=== PATIENT | female | born 1940 | race Caucasian/White ===

== ENCOUNTER 2017-05-08 21:17 | Inpatient (IN) | payer MEDICARE, MEDICAID ==
[~2017-05-08] VITALS: Ht 162.6 cm; Wt 68.0 kg
--- NOTE | 2017-05-08 21:30 | NUR ---
DR. SALAZAR AT BEDSIDE FOR MSE.
[2017-05-08] MEDS ORDERED: CHOL10002 PO (21:40)
[2017-05-08] MEDS ORDERED: BLOO-140 IN (21:40)
[2017-05-08] MEDS ORDERED: DOCU100C36 PO (21:40)
[2017-05-08] MEDS ORDERED: GLIP5TAB13 PO (21:40)
[2017-05-08] MEDS ORDERED: ACET325T53 PO (21:40)
[2017-05-08] MEDS ORDERED: INSU3INS6 SQ (21:40)
[2017-05-08] MEDS ORDERED: MAGN400O6 PO (21:40)
[2017-05-08] MEDS ORDERED: DIPH25CA83 PO (21:40)
[2017-05-08] MEDS ORDERED: QUET25TA PO (21:40)
[2017-05-08 22:26] LABS: BASOPHILS % (AUTO) 0.3 % (0.0-2.0); CARBON DIOXIDE 30 mmol/L (21-32); CHLORIDE 101 mmol/L (98-107); CREATININE 0.7 mg/dL (0.6-1.3); EOSINOPHILS % (AUTO) 0.1 % (0.0-7.0); GLUCOSE 204 mg/dL (74-106); HEMATOCRIT 40.4 % (31.2-41.9); HEMOGLOBIN 13.5 g/dL (10.9-14.3); LYMPHOCYTES # (AUTO) 0.6 K/uL (20.0-40.0); LYMPHOCYTES % (AUTO) 5.6 % (20.5-51.5); MEAN CORPUSCULAR HEMOGLOBIN 30.4 uug (24.7-32.8); MEAN CORPUSCULAR HGB CONC 34 g/dL (32.3-35.6); MEAN CORPUSCULAR VOLUME 90.8 fL (75.5-95.3); MONOCYTES # (AUTO) 0.5 K/uL (2.0-10.0); MONOCYTES % (AUTO) 4.4 % (0.0-11.0); NEUTROPHILS # (AUTO) 9.5 K/uL (1.8-8.9); NEUTROPHILS % (AUTO) 89.6 % (38.5-71.5); PLATELET COUNT (AUTO) 159 K/uL (179-408); POTASSIUM 3.8 mmol/L (3.5-5.1); RED BLOOD CELL COUNT(AUTO) 4.45 MIL/uL (3.63-4.92); UREA NITROGEN, BLOOD 15 mg/dL (7-18); WHITE BLOOD COUNT (AUTO) 10.6 K/uL (3.8-11.8)
[2017-05-08 22:31] LABS: ALANINE AMINOTRANSFERASE 37 U/L (14-59); ALKALINE PHOSPHATASE 76 U/L (50-136); ASPARTATE AMINOTRANSFERASE 19 U/L (15-37); BILIRUBIN,DIRECT 0.1 mg/dL (0.0-0.2); BILIRUBIN,TOTAL 0.5 mg/dL (0.2-1.0); LIPASE 60 U/L (73-393); TOTAL PROTEIN, SERUM 7.3 g/dL (6.4-8.2)
[2017-05-08] MEDS ORDERED: LEVOFLOXACIN 500 MG/D5W 100 ML ONE (22:57)
[2017-05-08] MEDS ORDERED: LEVOFLOXACIN 500 MG/D5W 100ML PIGGYBACK IV ONE (23:00)
[2017-05-08 23:20] LABS: *BILIRUBIN,URIN NEGATIVE (NEGATIVE); *BLOOD, URINE Trace-intact (NEGATIVE); *CLARITY,URINE CLEAR (CLEAR); *COLOR,URINE YELLOW (YELLOW); *KETONES,URINE 3+ (NEGATIVE); *PROTEIN,URINE 1+ (NEGATIVE); *UROBILINOGEN,URINE 0.2 E.U./dl (NORMAL); LEUKOCYTE ESTERASE ,URINE NEGATIVE (NEGATIVE); NITRITE, URINE NEGATIVE (NEGATIVE); UGLUCOSE NEGATIVE (NEGATIVE)
[2017-05-08 23:28] LABS: BACTERIA,URINE NONE SEEN /HPF (NONE SEEN); MUCUS,URINE FEW /LPF (0-FEW); SQUAMOUS EPITHELIAL CELL,UR FEW /HPF (NONE SEEN); WBC,URINE 0-3 /HPF (0-3)
[2017-05-08] MEDS ORDERED: ONDANSETRON 4 MG/2 ML VIAL ONE (23:28)
[2017-05-08] MEDS: METRONIDAZOLE 500 MG/NS 100 ML PIGGYBACK IV ONE (23:30)
[2017-05-08] MEDS ORDERED: ONDANSETRON IV *ER 4 MG/2 ML VIAL IV ONE (23:30)
[2017-05-09] MEDS ORDERED: METRONIDAZOLE 500 MG/NS 100ML 100 ML IV ONE (00:06)
[2017-05-09] MEDS: METRONIDAZOLE 500 MG/NS 100 ML PIGGYBACK IV ONE (00:09)
[2017-05-09] MEDS ORDERED: DEXTROSE 50% 50 ML DISP.SYRIN IV PRN (01:00)
[2017-05-09] MEDS ORDERED: MORPHINE SULFATE 4 MG/1 ML DISP.SYRIN IV PRN (01:00)
[2017-05-09] MEDS ORDERED: ENALAPRILAT DIHYDRATE INJ 2.5 MG in IV NORMAL SALINE 50 ML IV PRN (01:00)
--- NOTE | 2017-05-09 01:10 | NUR ---
PATIENT PULLED OUT IV, CATHETER INTACT. NEW 20 GAUGE IV INSERTED IN RIGHT AC.
[2017-05-09] MEDS ORDERED: ONDANSETRON IV *ER 4 MG/2 ML VIAL IV ONE (01:15)
[2017-05-09 01:30] VITALS: BP 134/68
--- NOTE | 2017-05-09 01:30 | NUR ---
ADMITTED PATIENT IN MED SURG UNIT UNDER THE CARE OF DR. MOORE, BELONGING LIST DONE.
--- NOTE | 2017-05-09 01:32 | NUR ---
Pt. admitted to M/S , under care of Dr. MOORE Belongs List completed
[2017-05-09] MEDS ORDERED: PIPERACILLIN/TAZOBACTAM/D5W 100 ML IV ONE (02:50)
[2017-05-09] MEDS: IV D5 1/2 NS 1000 ML 1,000 ML IV PRN ×2 (02:52→23:03)
[2017-05-09] MEDS: PIPERACILLIN/TAZOBACTAM/D5W 50 ML IV SCH ×4 (03:57→18:09)
[2017-05-09 05:07] VITALS: BP 139/58
[2017-05-09] MEDS: BLOOD SUGAR DIAGNOSTIC 1 EACH STRIP VI SCH ×3 (06:09→18:48)
[2017-05-09] MEDS: PANTOPRAZOLE SODIUM 40 MG TABLET.DR PO SCH (06:16)
--- NOTE | 2017-05-09 06:26 | NUR ---
PATIENT SLEPT ON AND OFF, DENIES PAIN AT THIS TIME, WITH X 1 EPISODE OF VOMITTING WITH CLEAR FLUIDS, APPROX 150CC, REMAINS NPO EXCEPT FOR PO MEDS. CONTINENT OF BLADDER BUT DIAPER WAS PLACE TO PREVENT ACCIDENT. ASSISTED WITH TOILETING, KEPT COMFORTABLE. PATIENT IV ANTIBIOTICS AT 0600 NOT GIVEN DUE TOO CLOSE FROM PREVIOUS ADMINISTRATION, ENDORSED TO NEXT SHIFT
--- NOTE | 2017-05-09 07:10 | NUR ---
Received report from manager chinese, client is in bed sleeping on her right lateral side with the bed in a flat position. No s/s of pain, SOB, distress or discomfort. IV hydration running through the right hand IV site with no complications. Bed is lowest position for safety and call light within reach for assistance
[2017-05-09 07:14] LABS: THYROID STIMULATING HORMONE 0.826 mIU/mL (0.358-3.740)
[2017-05-09 07:27] LABS: ALANINE AMINOTRANSFERASE 32 U/L (14-59); ALKALINE PHOSPHATASE 67 U/L (50-136); ASPARTATE AMINOTRANSFERASE 18 U/L (15-37); BILIRUBIN,TOTAL 0.5 mg/dL (0.2-1.0); CARBON DIOXIDE 31 mmol/L (21-32); CHLORIDE 101 mmol/L (98-107); CREATININE 0.7 mg/dL (0.6-1.3); GLUCOSE 158 mg/dL (74-106); MAGNESIUM 2.1 mg/dL (1.8-2.4); PHOSPHOROUS 2.6 mg/dL (2.5-4.9); POTASSIUM 3.6 mmol/L (3.5-5.1); TOTAL PROTEIN, SERUM 6.7 g/dL (6.4-8.2); UREA NITROGEN, BLOOD 14 mg/dL (7-18)
[2017-05-09] MEDS ORDERED: diphenhydrAMINE 25 MG CAP PO PRN (08:00)
--- NOTE | 2017-05-09 08:00 | NUR ---
Client Accu check in the am as endorsed by the placement specialist was 142, client is NPO. Held Insulin in order not to drop her blood sugar
[2017-05-09 08:25] LABS: BASOPHILS % (AUTO) 0.4 % (0.0-2.0); EOSINOPHILS % (AUTO) 0.1 % (0.0-7.0); HEMATOCRIT 37.8 % (31.2-41.9); HEMOGLOBIN 12.7 g/dL (10.9-14.3); LYMPHOCYTES # (AUTO) 0.8 K/uL (20.0-40.0); LYMPHOCYTES % (AUTO) 8.2 % (20.5-51.5); MEAN CORPUSCULAR HEMOGLOBIN 30.7 uug (24.7-32.8); MEAN CORPUSCULAR HGB CONC 34 g/dL (32.3-35.6); MEAN CORPUSCULAR VOLUME 91.2 fL (75.5-95.3); MONOCYTES # (AUTO) 0.6 K/uL (2.0-10.0); MONOCYTES % (AUTO) 6.6 % (0.0-11.0); NEUTROPHILS # (AUTO) 7.8 K/uL (1.8-8.9); NEUTROPHILS % (AUTO) 84.7 % (38.5-71.5); PLATELET COUNT (AUTO) 159 K/uL (179-408); RED BLOOD CELL COUNT(AUTO) 4.15 MIL/uL (3.63-4.92); WHITE BLOOD COUNT (AUTO) 9.2 K/uL (3.8-11.8)
[2017-05-09 09:25] LABS: CHOLESTEROL 164 mg/dL (<200); HDL CHOLESTEROL 60 mg/dL (40-60); TRIGLYCERIDES 47 MG/DL (30-150)
[2017-05-09] MEDS: CHOLECALCIFEROL 1,000 UNIT TABLET PO SCH (09:31)
--- NOTE | 2017-05-09 09:35 | NUR ---
Zosyn IV started at this time due to previous IV Zosyn scheduled at midnight was given around 4am. Pharmacy aware and stated to try to catch for the day and suggested that the 6am dose be given around 9am and the noon dose around 1pm and have the 1800 dose be given on time.
[2017-05-09 11:38] VITALS: BP 137/52
[2017-05-09] MEDS: ONDANSETRON 4 MG/2 ML VIAL IV PRN ×2 (13:18→20:49)
--- NOTE | 2017-05-09 13:18 | NUR ---
Noted client with nausea and vomiting episodes times 2 with about 25cc of emesis Addendum: 05/09/17 at 1319 by RUDDY STAFFORD RN John chaparro
--- NOTE | 2017-05-09 14:00 | NUR ---
Asked client is she had voided for the day, client stated she had not. I asked the client id she would like assistance to the restroom in order for her to voided, she refused. Concern about her not voiding, I asked her if I could do a bladder scan, but client refuse stating to leave her alone. Client's wishes were respected.
--- NOTE | 2017-05-09 14:20 | NUR ---
Client stated she went to the restroom and voided outside the toilet, noted urine on the floor and called maintenance to clean up the spill. Cleint back in bed and assisted her with the help of the PROFESSOR OF COMMUNICATION ARTS to pull her up and now comfortable in bed.
[2017-05-09 15:40] VITALS: BP 136/55
[2017-05-09] MEDS ORDERED: ONDANSETRON 4 MG/2 ML VIAL IV STA (16:13)
--- NOTE | 2017-05-09 16:15 | NUR ---
CONSULT WITH NEW ORDERS FOR ZOFRAN 4MG IV STAT FOR NAUSEA
[2017-05-09] MEDS: INSULIN REGULAR, HUMAN 300 UNIT/3 ML VIAL SQ PRN (18:50)
--- NOTE | 2017-05-09 19:15 | NUR ---
End of shift notes: Client is in bed sleeping with no apparent sign and symptoms of SOB, pain, distress or discomfort. Noted client to rest and sleep throughout the day, around 1420 hrs client got up without using the call light and use the restroom, noted that she voided.Bed at lowest position for safety and call light within reach for assistance. IV Zosyn given and Zofran was most of the planned care for today. Client was noted to be compliant after explaining all medication and the nursing care being provided for her.
--- NOTE | 2017-05-09 19:25 | NUR ---
RECEIVED PT LYING IN BED. ALERT AND ORIENTED X2. NOT IN ACUTE DISTRESS. SAFETY MEASURE INITIATED AND CALL IBRAHIM WITHIN REACHED.
[2017-05-09 20:00] VITALS: BP 141/59
[2017-05-09] MEDS: QUETIAPINE FUMARATE 25 MG TABLET PO SCH (20:05)
[2017-05-10] MEDS: PIPERACILLIN/TAZOBACTAM/D5W 50 ML IV SCH ×4 (00:02→18:24)
[2017-05-10 04:33] VITALS: BP 126/54
--- NOTE | 2017-05-10 04:59 | NUR ---
PT ASLEEP. NOT IN ACUTE DISTRESS. IV SITE ON RIGHT FA INTACT AND PATENT. IV FLUIDS INFUSING. REFUSED ACCU CHECK AT 0000. ZOFRAN GIVEN FOR NAUSEA AND EFFECTIVE. ASSISTED TO TOILET AD GUSTAVO. DENIES ANY PAIN OR SOB. BED ON LOW POSITION WITH BED ALARM ON. SAFETY MEASURE MAINTAINED. Addendum: 05/10/17 at 0504 by SABA CURRY RN IV SITE ON RIGHT HAND.
[2017-05-10] MEDS: BLOOD SUGAR DIAGNOSTIC 1 EACH STRIP VI SCH ×4 (05:34→18:38)
[2017-05-10] MEDS: INSULIN REGULAR, HUMAN 300 UNIT/3 ML VIAL SQ PRN ×3 (05:38→18:43)
[2017-05-10] MEDS: PANTOPRAZOLE SODIUM 40 MG TABLET.DR PO SCH (06:05)
[2017-05-10 07:53] LABS: BASOPHILS % (AUTO) 0.4 % (0.0-2.0); EOSINOPHILS # (AUTO) 0.1 K/uL (0.0-0.7); EOSINOPHILS % (AUTO) 1.8 % (0.0-7.0); HEMATOCRIT 37.7 % (31.2-41.9); HEMOGLOBIN 12.5 g/dL (10.9-14.3); LYMPHOCYTES # (AUTO) 1.1 K/uL (20.0-40.0); LYMPHOCYTES % (AUTO) 17.3 % (20.5-51.5); MEAN CORPUSCULAR HEMOGLOBIN 30.1 uug (24.7-32.8); MEAN CORPUSCULAR HGB CONC 33 g/dL (32.3-35.6); MEAN CORPUSCULAR VOLUME 90.5 fL (75.5-95.3); MONOCYTES # (AUTO) 0.5 K/uL (2.0-10.0); MONOCYTES % (AUTO) 8.6 % (0.0-11.0); NEUTROPHILS # (AUTO) 4.5 K/uL (1.8-8.9); NEUTROPHILS % (AUTO) 71.9 % (38.5-71.5); PLATELET COUNT (AUTO) 154 K/uL (179-408); RED BLOOD CELL COUNT(AUTO) 4.16 MIL/uL (3.63-4.92)
[2017-05-10 07:59] LABS: CARBON DIOXIDE 30 mmol/L (21-32); CREATININE 0.8 mg/dL (0.6-1.3); GLUCOSE 164 mg/dL (74-106); MAGNESIUM 2.2 mg/dL (1.8-2.4); PHOSPHOROUS 2.2 mg/dL (2.5-4.9); UREA NITROGEN, BLOOD 11 mg/dL (7-18)
[2017-05-10 08:06] LABS: WHITE BLOOD COUNT (AUTO) 6.3 K/uL (3.8-11.8)
[2017-05-10 08:11] LABS: CHLORIDE 104 mmol/L (98-107)
[2017-05-10 08:47] LABS: POTASSIUM 2.6 mmol/L (3.5-5.1)
[2017-05-10] MEDS: CHOLECALCIFEROL 1,000 UNIT TABLET PO SCH (09:52)
[2017-05-10 11:07] VITALS: BP 136/61
[2017-05-10] MEDS: ACETAMINOPHEN 325 MG TABLET PO PRN (11:47)
[2017-05-10 15:09] VITALS: BP 130/67
[2017-05-10] MEDS ORDERED: POTASSIUM CHLORIDE 20 MEQ TAB.PRT.SR PO ONE (15:30)
[2017-05-10] MEDS ORDERED: NEUTRA PHOS PACKET PO ONE (16:45)
[2017-05-10] MEDS: IV D5 1/2 NS 1000 ML 1,000 ML IV PRN (18:54)
--- NOTE | 2017-05-10 19:30 | NUR ---
Received patient laying comfortably in bed. No acute distress noted. A&O x 2, confused. Patient is able to make needs known. Patient likes to walk to the bathroom. Reenforced safety, instructed patient to use call light when in need of assistance. Patient understood. Bed alarm on. Room is kept clutter free. Bed is in low and locked position. IV Fluids running. on the Right AC. Safety initiated, call light within reach. Will continue to monitor.
[2017-05-10 20:00] VITALS: BP 142/64
[2017-05-10] MEDS: QUETIAPINE FUMARATE 25 MG TABLET PO SCH (20:01)
[2017-05-11] MEDS: PIPERACILLIN/TAZOBACTAM/D5W 50 ML IV SCH ×4 (00:10→17:01)
[2017-05-11] MEDS: BLOOD SUGAR DIAGNOSTIC 1 EACH STRIP VI SCH ×6 (00:12→20:46)
[2017-05-11] MEDS: INSULIN REGULAR, HUMAN 300 UNIT/3 ML VIAL SQ PRN ×4 (00:13→20:51)
[2017-05-11 04:35] VITALS: BP 148/59
--- NOTE | 2017-05-11 05:47 | NUR ---
Patient slept intermittently t/o shift. No acute distress noted. Patient is A&O x 2 but very forgetful and has episodes of confusion and aggressiveness. However, I was able to re-direct patient. No c/o pain. Vital Signs stable. No temperature. IVF infusing on the Right AC. Bed alarm on. Room is kept clutter free. Bed is in low and locked positioned. Safety and comfort measures maintained t/o shift. BM x 1. All meds given as ordered. All needs met.
[2017-05-11] MEDS: PANTOPRAZOLE SODIUM 40 MG TABLET.DR PO SCH (06:13)
[2017-05-11] MEDS ORDERED: DEXTROSE 50% 50 ML DISP.SYRIN IV PRN (07:15)
[2017-05-11 07:32] LABS: CARBON DIOXIDE 33 mmol/L (21-32); CHLORIDE 107 mmol/L (98-107); CREATININE 0.7 mg/dL (0.6-1.3); GLUCOSE 132 mg/dL (74-106); MAGNESIUM 2.1 mg/dL (1.8-2.4); PHOSPHOROUS 3.2 mg/dL (2.5-4.9); UREA NITROGEN, BLOOD 13 mg/dL (7-18)
--- NOTE | 2017-05-11 07:46 | NUR ---
RECEIVED PT LYING IN BED. ALERT AND ORIENTED X2. NOT IN ACUTE DISTRESS. SAFETY MEASURE INITIATED AND CALL IBRAHIM WITHIN REACHED.
[2017-05-11 07:54] LABS: BASOPHILS % (AUTO) 0.6 % (0.0-2.0); EOSINOPHILS # (AUTO) 0.5 K/uL (0.0-0.7); EOSINOPHILS % (AUTO) 10.2 % (0.0-7.0); HEMATOCRIT 37.4 % (31.2-41.9); HEMOGLOBIN 12.6 g/dL (10.9-14.3); LYMPHOCYTES # (AUTO) 1.2 K/uL (20.0-40.0); LYMPHOCYTES % (AUTO) 24.2 % (20.5-51.5); MEAN CORPUSCULAR HEMOGLOBIN 30.5 uug (24.7-32.8); MEAN CORPUSCULAR HGB CONC 34 g/dL (32.3-35.6); MEAN CORPUSCULAR VOLUME 90.5 fL (75.5-95.3); MONOCYTES # (AUTO) 0.5 K/uL (2.0-10.0); MONOCYTES % (AUTO) 10.9 % (0.0-11.0); NEUTROPHILS # (AUTO) 2.7 K/uL (1.8-8.9); NEUTROPHILS % (AUTO) 54.1 % (38.5-71.5); PLATELET COUNT (AUTO) 172 K/uL (179-408); RED BLOOD CELL COUNT(AUTO) 4.14 MIL/uL (3.63-4.92); WHITE BLOOD COUNT (AUTO) 4.9 K/uL (3.8-11.8)
[2017-05-11] MEDS: CHOLECALCIFEROL 1,000 UNIT TABLET PO SCH (08:05)
[2017-05-11 11:07] VITALS: BP 148/63
[2017-05-11] MEDS ORDERED: POTASSIUM CHLORIDE 20 MEQ TAB.PRT.SR PO ONE (11:15)
[2017-05-11 12:55] LABS: EOSINOPHILS % (MANUAL) 14 % (0-8); LYMPHOCYTES % (MANUAL) 23 % (20-40); METAMYELOCYTES % 1 % (0-1); MONOCYTES % (MANUAL) 10 % (2-10); NEUTROPHILS % (MANUAL) 50 % (42-75)
[2017-05-11 12:56] LABS: REACTIVE LYMPHOCYTES 2 % (0-0)
[2017-05-11 15:49] VITALS: BP 155/68
[2017-05-11 16:12] VITALS: BP 140/60
--- NOTE | 2017-05-11 17:23 | NUR ---
Patient slept intermittently t/o shift. No acute distress noted. No c/o pain. Vital Signs STABLE.. Bed alarm on. Room is kept clutter free. Bed is in low and locked positioned.. All needs met.
--- NOTE | 2017-05-11 19:15 | NUR ---
RECEIVED PT AWAKE, ALERT, ORIENTEDX3. PT SHOWS NO SIGNS OF DISTRESS. PT IV INTACT AND PATENT. CALL LIGHT WITHIN REACH. WILL CONTINUE TO MONITOR.
[2017-05-11 20:23] VITALS: BP 143/59
[2017-05-11] MEDS: QUETIAPINE FUMARATE 25 MG TABLET PO SCH (20:43)
[2017-05-12] MEDS: PIPERACILLIN/TAZOBACTAM/D5W 50 ML IV SCH ×5 (00:09→23:16)
[2017-05-12] MEDS: IV D5 1/2 NS 1000 ML 1,000 ML IV PRN ×2 (00:15→17:15)
[2017-05-12] MEDS: PANTOPRAZOLE SODIUM 40 MG TABLET.DR PO SCH (06:17)
--- NOTE | 2017-05-12 06:21 | NUR ---
PT SLEPT THROUGHOUT THE SHIFT. PT SHOWS NO SIGNS OF DISTRESS. PT BLOOD SUGAR WAS 209 PER SLIDING SCALE. PT VITAL SIGNS WITHIN NORMAL LIMIT. PRESCRIBED MEDICATION GIVEN AND TOLERATED. IV INTACT AND PATENT. CALL LIGHT WITHIN REACH. SAFETY AND COMFORT PROVIDED.
[2017-05-12] MEDS: glipiZIDE 5 MG TABLET PO SCH ×2 (06:31→17:12)
[2017-05-12] MEDS: BLOOD SUGAR DIAGNOSTIC 1 EACH STRIP VI SCH ×4 (06:32→20:46)
[2017-05-12 06:55] VITALS: BP 149/56
[2017-05-12] MEDS: CHOLECALCIFEROL 1,000 UNIT TABLET PO SCH (08:25)
[2017-05-12] MEDS: INSULIN REGULAR, HUMAN 300 UNIT/3 ML VIAL SQ PRN ×4 (08:25→20:51)
[2017-05-12 13:00] VITALS: BP 149/65
[2017-05-12] MEDS ORDERED: INSU100V28 SQ (15:36)
[2017-05-12] MEDS ORDERED: METR500T PO (15:36)
[2017-05-12] MEDS ORDERED: DEXT50DI8 IV (15:36)
[2017-05-12] MEDS ORDERED: LEVO500T2 PO (15:36)
[2017-05-12] MEDS ORDERED: PANT40TA2 PO (15:36)
[2017-05-12] MEDS ORDERED: Blood Sugar Diagnostic VI (15:36)
[2017-05-12] MEDS ORDERED: OMEG1CAP PO (15:37)
[2017-05-12 16:18] VITALS: BP 176/111
--- NOTE | 2017-05-12 16:40 | NUR ---
PER THE COIN MACHINE SERVICE REPAIRER [facility] WILL BE UNABLE TO TAKE PATIENT UNTIL TOMORROW AND STATED THAT DR MOORE IS AWARE AND THAT THE PATIENTS NEPHEW AWARE OF PATIENT TO BE DISCHARGED TOMORROW.
--- NOTE | 2017-05-12 16:54 | NUR ---
BLOOD PRESSURE IS 198/80 HR 76 NO SYMPTOMS NOTED PATIENT MADE COMFORTABLE AND DR MOORE NOTIFIED WITH NEW ORDERS AND NOTED.
--- NOTE | 2017-05-12 19:20 | NUR ---
Received pt awake, alert orientedx3. Pt shows no signs of distress. pt iv intact and patent. call light within reach. will continue to monitor the pt condition.
[2017-05-12 20:12] VITALS: BP 173/62
[2017-05-12] MEDS: QUETIAPINE FUMARATE 25 MG TABLET PO SCH (20:41)
[2017-05-12] MEDS: CLONIDINE HCL 0.1 MG TABLET PO PRN (20:41)
[2017-05-12 21:57] VITALS: BP 107/92
[2017-05-13 04:32] VITALS: BP 141/57
[2017-05-13] MEDS: PIPERACILLIN/TAZOBACTAM/D5W 50 ML IV SCH ×2 (05:30→11:53)
[2017-05-13] MEDS: PANTOPRAZOLE SODIUM 40 MG TABLET.DR PO SCH ×3 (06:27→06:37)
[2017-05-13] MEDS: BLOOD SUGAR DIAGNOSTIC 1 EACH STRIP VI SCH ×2 (06:30→11:53)
[2017-05-13] MEDS: glipiZIDE 5 MG TABLET PO SCH ×2 (06:31→06:34)
--- NOTE | 2017-05-13 06:38 | NUR ---
pPt refuse to take the medication Protonix and Glipizide. She's anxious . pt iv intact and patent. safety and comfort provided. pt afebrile.will endorse to dayshift nurse.
[2017-05-13] MEDS: INSULIN REGULAR, HUMAN 300 UNIT/3 ML VIAL SQ PRN ×2 (08:25→12:19)
[2017-05-13] MEDS: ACETAMINOPHEN 325 MG TABLET PO PRN (08:25)
[2017-05-13] MEDS: CHOLECALCIFEROL 1,000 UNIT TABLET PO SCH (08:25)
--- NOTE | 2017-05-13 10:13 | NUR ---
CALLED THE [facility] AND REPORT GIVEN TO BHARGAV GILES FOR CONTINUING CARE WILL CALL THE AMBULANCE.
[2017-05-13] MEDS: CLONIDINE HCL 0.1 MG TABLET PO PRN (10:40)
--- NOTE | 2017-05-13 10:40 | NUR ---
BLOOD PRESSURE AT THIS TIME IS 157/55 MEDICATED WITH CLONIDINE ORDERED AND WILL OBSERVE.
[2017-05-13 11:40] VITALS: BP 157/55
--- NOTE | 2017-05-13 13:26 | NUR ---
PATIENT DISCHARGED PICKED UP BY THE AMBULANCE IN SATISFACTORY CONDITION WITH INSTRUCTIONS TO CLARIFY WITH HER SNF DOCTOR REGARDING THE ORDERS ON THE ANTIBIOTICS BECAUSE DR MOORE ORDERED LEVAQUIN AND FLAGYL BUT DR TURNER ORDERED FLAGYL AND CIPRO THE AMBULANCE TECHS WILL INFORM THE RECEIVING NURSE REGARDING THIS DIFFERENCE.PATIENT DISCHARGED WITH ALL HER PERSOMAL BELONGINGS.
== END 2017-05-13 13:20 | DRG 392 ==
LOC: ER 21:18 → MED 05-09 01:15
PROVIDERS: ADMIT Internal Medicine; ATTEND Internal Medicine
DX: K57.32 Diverticulitis of large intestine without perforation or abscess without bleeding (principal); D68.59 Other primary thrombophilia; E11.65 Type 2 diabetes mellitus with hyperglycemia; F02.81 Dementia in other diseases classified elsewhere, unspecified severity, with behavioral disturbance; J98.11 Atelectasis; G30.9 Alzheimer's disease, unspecified; K42.9 Umbilical hernia without obstruction or gangrene; K44.9 Diaphragmatic hernia without obstruction or gangrene; Z87.891 Personal history of nicotine dependence; Z79.4 Long term (current) use of insulin; F32.9 Major depressive disorder, single episode, unspecified; Z90.710 Acquired absence of both cervix and uterus; R91.8 Other nonspecific abnormal finding of lung field; E78.5 Hyperlipidemia, unspecified; F10.11 Alcohol abuse, in remission
CPT/HCPCS: 36415; 51702; 70030-TC; 71045; 83605; 83690; 83735; 84100; 84443; 85025; 85730; 87040; 87086; 93005; A4663; C1758; J1815; J1956; J2405; J2543; J3490